=== PATIENT | female | born 1960 | race Caucasian/White ===

== ENCOUNTER → 2019-02-10 | Outpatient (CLI) | payer OTHER ==
[~2019-02-10] MED LIST: ALIGN PROBIOTIC PO; CETI10TA24 PO; ETOD500T PO; FLUT16SP NAS; HYDR1TAB13 PO; PEPPERMINT OIL; ROSU5TAB PO
== END | disposition home or self-care (01) ==
LOC: STAR 15:17
PROVIDERS: ATTEND Orthopaedic Surgery
DX: Z01.818 Encounter for other preprocedural examination (principal); Z96.651 Presence of right artificial knee joint
CPT/HCPCS: 87081; 93005

== ENCOUNTER 2019-02-20 06:47 | Observation (INO) | payer OTHER ==
[~2019-02-20] VITALS: Ht 157.5 cm; Wt 80.5 kg
[~2019-02-20 06:47] MED LIST changes: +EPINEPHRINE 1 MG/ML, 1ML ONE; -FLUT16SP NAS; +FLUT16SP24 NAS; +KETOROLAC 60 MG/2 ML ONE; +ROPIvacaine/PF 0.2%, 20 ML ONE; +SODIUM CHLORIDE 0.9% 50 ML ONE; +TRANEXAMIC ACID 100 MG/ML, 10ML ONE; +VANCOMYCIN 1,000 MG ONE
[2019-02-20] MEDS ORDERED: LACTATED RINGERS 1,000 ML IV SCH (07:29)
[2019-02-20] MEDS ORDERED: FENTANYL PF 250 MCG/5ML ONE (08:13)
[2019-02-20] MEDS ORDERED: MIDAZOLAM 1 MG/ML, 2ML ONE (08:13)
[2019-02-20] MEDS ORDERED: ACETAMINOPHEN 500 MG TABLET ONE ×2 (08:43→10:09)
[2019-02-20] MEDS ORDERED: GABAPENTIN 300 MG CAPSULE ONE ×2 (08:43→10:09)
[2019-02-20] MEDS ORDERED: ALBUTEROL SULFATE 2.5 MG/3 ML NPPB PRN (09:30)
[2019-02-20] MEDS ORDERED: hydrALAzine 20 MG/ML, 1ML IV PRN (09:30)
[2019-02-20] MEDS ORDERED: DIAZEPAM 5 MG/ML, 2ML IVPush PRN (09:30)
[2019-02-20] MEDS ORDERED: PROMETHAZINE 25 MG/ML, 1ML IV PRN (09:30)
[2019-02-20] MEDS ORDERED: LABETALOL 5MG/ML, 20ML IV PRN (09:30)
[2019-02-20] MEDS ORDERED: OXYcodone 5 MG/5 ML ORAL.SOL UDC PO PRN (09:30)
[2019-02-20] MEDS ORDERED: MEPERIDINE/PF 25MG/0.5ML IVPush PRN (09:30)
[2019-02-20] MEDS ORDERED: ONDANSETRON 2MG/ML, 2ML ONE (09:54)
[2019-02-20] MEDS ORDERED: PROPOFOL 10 MG/ML, 20ML ONE (09:54)
[2019-02-20] MEDS ORDERED: CEFAZOLIN 1,000 MG ONE (09:54)
[2019-02-20] MEDS ORDERED: NEOSTIGMINE 1 MG/ML, 10ML ONE (09:54)
[2019-02-20] MEDS ORDERED: GLYCOPYRROLATE 0.2MG/1ML, 5ML ONE (09:54)
[2019-02-20] MEDS ORDERED: SUCCINYLCHOLINE 20 MG/ML, 10ML ONE (09:54)
[2019-02-20] MEDS ORDERED: ROCURONIUM 10MG/ML,5ML ONE (09:54)
[2019-02-20] MEDS ORDERED: DEXAMETHASONE 4 MG/ML, 1ML ONE (09:54)
[2019-02-20] MEDS: HYDROmorphone 2 MG/ML, 1ML IVPush PRN ×4 (10:36→11:18)
[2019-02-20] MEDS ORDERED: FENTANYL PF 100 MCG/2ML ONE (10:40)
[2019-02-20] MEDS ORDERED: HYDROmorphone 2 MG/ML, 1ML ONE (10:40)
[2019-02-20] MEDS ORDERED: OXYcodone 5 MG/5 ML ORAL.SOL UDC ONE (10:41)
[2019-02-20] MEDS: FENTANYL PF 100 MCG/2ML IV PRN ×3 (10:46→11:08)
[2019-02-20] MEDS ORDERED: DIAZEPAM 5 MG TABLET ONE (10:57)
[2019-02-20] MEDS ORDERED: PROMETHAZINE 25 MG/ML, 1ML IM PRN (11:00)
[2019-02-20] MEDS ORDERED: ACETAMINOPHEN 650 MG/20.3 ML UDC PO PRN (11:00)
[2019-02-20] MEDS ORDERED: BISACODYL 10 MG SUPP PR PRN (11:00)
[2019-02-20] MEDS ORDERED: PROMETHAZINE 12.5 MG SUPP PR PRN (11:00)
[2019-02-20] MEDS ORDERED: DIPHENHYDRAMINE 25 MG CAPSULE PO PRN (11:00)
[2019-02-20] MEDS ORDERED: POLYETHYLENE GLYCOL 17 GM PACKET PO PRN (11:00)
[2019-02-20] MEDS ORDERED: DIAZEPAM 5 MG TABLET PO PRN (11:00)
[2019-02-20] MEDS ORDERED: ONDANSETRON 2MG/ML, 2ML IV PRN (11:00)
[2019-02-20] MEDS ORDERED: HYDROmorphone 2 MG/ML, 1ML IVPush PRN (11:00)
[2019-02-20] MEDS ORDERED: TRANEXAMIC ACID 1,000 MG in SODIUM CHLORIDE 0.9% 100 ML IVPB ONE (11:00)
[2019-02-20] MEDS ORDERED: SCOPOLAMINE PATCH, 1.5MG PATCH.TD72 TD SCH (11:00)
[2019-02-20] MEDS ORDERED: SENNA/DOCUSATE TABLET PO PRN (11:00)
[2019-02-20] MEDS ORDERED: ALUMINUM/MAG/SIMETHICONE 30 ML UDC PO PRN (11:00)
[2019-02-20] MEDS ORDERED: ZOLPIDEM 5MG TABLET PO PRN (11:00)
[2019-02-20] MEDS ORDERED: MAGNESIUM HYDROXIDE 8%, 30ML UDC PO PRN (11:00)
[2019-02-20] MEDS ORDERED: PSYLLIUM PACKET PO PRN (11:00)
[2019-02-20] MEDS ORDERED: ONDANSETRON 4 MG TABLET PO PRN (11:00)
[2019-02-20] MEDS: ACETAMINOPHEN 500 MG TABLET PO SCH ×3 (11:00→23:04)
[2019-02-20] MEDS ORDERED: MEPERIDINE/PF 25MG/ML,1ML ONE (11:15)
[2019-02-20] MEDS: CALCIUM/VITAMIN D3 250-125 TABLET PO SCH ×2 (12:00→17:31)
[2019-02-20 12:25] VITALS: BP 108/65
[2019-02-20] MEDS: KETOROLAC 30 MG/1 ML IV SCH ×2 (15:15→23:05)
[2019-02-20] MEDS: D5%-0.45% NACL 1,000 ML IV SCH ×2 (15:15→23:07)
[2019-02-20] MEDS: CEFAZOLIN PMX 1GM/50ML 50 ML IVPB SCH (17:31)
[2019-02-20] MEDS: FERROUS SULFATE 325 MG TABLET PO SCH (17:32)
[2019-02-20] MEDS ORDERED: ASPIRIN 81 MG TABLET EC PO SCH (18:00)
[2019-02-20 20:21] VITALS: BP 109/72
[2019-02-20] MEDS: DOCUSATE 100 MG CAPSULE PO SCH (21:00)
[2019-02-20] MEDS ORDERED: ATORVASTATIN 20 MG TABLET PO SCH (21:00)
[2019-02-20 23:55] VITALS: BP 113/76
[2019-02-21] MEDS: CEFAZOLIN PMX 1GM/50ML 50 ML IVPB SCH (00:59)
[2019-02-21] MEDS: OXYcodone IR 5MG TABLET PO PRN ×2 (01:08→05:11)
[2019-02-21 01:50] VITALS: BP 110/72
[2019-02-21] MEDS: ACETAMINOPHEN 500 MG TABLET PO SCH ×2 (05:10→11:00)
[2019-02-21] MEDS ORDERED: DEXAMETHASONE 4 MG/ML, 1ML IVPush SCH (06:00)
[2019-02-21 06:24] VITALS: BP 101/54
[2019-02-21] MEDS: D5%-0.45% NACL 1,000 ML IV SCH (06:29)
[2019-02-21] MEDS: KETOROLAC 30 MG/1 ML IV SCH (06:45)
[2019-02-21] MEDS: CALCIUM/VITAMIN D3 250-125 TABLET PO SCH (08:51)
[2019-02-21] MEDS: FERROUS SULFATE 325 MG TABLET PO SCH (08:51)
[2019-02-21] MEDS: DOCUSATE 100 MG CAPSULE PO SCH (08:52)
[2019-02-21] MEDS ORDERED: MULTIVITAMINS/MINERALS TABLET PO SCH (09:00)
[2019-02-21] MEDS ORDERED: ASCORBIC ACID 500 MG TABLET PO SCH (09:00)
[2019-02-21] MEDS ORDERED: OXYC5TAB2 PO (09:46)
== END 2019-02-21 12:05 | disposition home or self-care (01) ==
LOC: OUT 06:47 → ORIP 10:46 → 4NOR 12:10 → DCLOUNGE 02-21 11:53
PROVIDERS: ADMIT Orthopaedic Surgery; ATTEND Orthopaedic Surgery
DX: M17.11 Unilateral primary osteoarthritis, right knee (principal); M21.00 Valgus deformity, not elsewhere classified, unspecified site; Z79.899 Other long term (current) drug therapy; Z96.652 Presence of left artificial knee joint; Z88.0 Allergy status to penicillin; Z88.2 Allergy status to sulfonamides
CPT/HCPCS: 27447; 36415; 73560; 85014; 85018; 96365; 96366; 96375; 96376; 97161; C1713; C1776; G0378; J0171; J0330; J0690; J1100; J1170; J1885; J2175; J2250; J2405; J2704; J2710; J2795; J3010; J7120; Q0162; J3370